=== PATIENT | female | born 1950 | race Two or more races ===

== ENCOUNTER 2024-08-23 09:38 | Outpatient (AMB) | payer MEDICARE, MEDICAID, SELFPAY ==
--- NOTE | 2024-08-23 09:48 | PD.ORTHCLVIS ---
Vital signs 08/23/24 09:49 Height 1.55 m Height Method Stated Weight 86.268 kg Weight Measurement Method Standing Scale BMI 35.9 BP 160/80 H Blood Pressure Source Automatic Cuff Blood Pressure Location Right Upper Arm Position Sitting Respiration 18 Pulse 81 Pulse Source Monitor Temp 98.1 F Temp Source Temporal Artery Scan Pulse Oximetry (%) 97 Oxygen Delivery Method Room Air Med/Allergies Allergies & Medications Allergies No Known Allergies Allergy (Verified 08/23/24 09:49) Medication Reconciliation lisinopril 40 mg tablet 40 ml PO BID #0 tabs 05/30/14 [History Confirmed 08/23/24] amlodipine 5 mg tablet 5 mg PO QDAY 04/05/24 [History Confirmed 08/23/24] atorvastatin 40 mg tablet 40 mg PO QDAY 04/05/24 [History Confirmed 08/23/24] omeprazole 20 mg capsule,delayed release 20 mg PO QDAY 05/20/24 [History Confirmed 08/23/24] acetaminophen 500 mg tablet (Acetaminophen Extra Strength) 1,000 mg (2 x 500 mg) PO Q6H PRN pain #90 tabs 05/23/24 [Rx Confirmed 08/23/24] aspirin 81 mg tablet,delayed release 81 mg PO BID #60 tabs 05/23/24 [Rx Confirmed 08/23/24] doxycycline hyclate 100 mg tablet 100 mg PO BID #14 tabs 05/23/24 [Rx Confirmed 08/23/24] gabapentin 300 mg capsule 300 mg PO .qhs #30 caps 05/23/24 [Rx Confirmed 08/23/24] oxycodone 5 mg tablet 5 mg PO Q6H PRN pain #28 tabs 05/23/24 [Rx Confirmed 08/23/24] sennosides 8.6 mg-docusate sodium 50 mg tablet (Senna-S) 1 tab-cap PO QDAY #30 tabs 05/23/24 [Rx Confirmed 08/23/24] oxycodone 5 mg tablet 5 mg PO Q6H PRN pain #28 tabs 07/12/24 [Rx Confirmed 08/23/24] Subjective Visit Visit for: follow up visit and knee Immunization / Flu Flu Vaccine in the Last 12 Months: No Flu Vaccine Exclusion Criteria: No Exclusion Criteria History of Present Illness Chief complaint: F/U ON KNEE. PAIN IS WORSENING ON THE POSTERIOR OF THE KNEE Date of 1st surgery (if applicable): 05/23/2024 Naya is 3-month status post right total knee replacement. She is doing well. She has minimal pain Personal History Occupation: RETIRED Red flag PMH: none Pain Pain level (0-10): 10 Pain duration: ALL DAY Pain location: posterior Pain quality: sharp and other (specify) (STABBING, PULSATING, SWELLING ) Pain timing: increases with activity Ambulatory data Ambulatory device: cane Treatments Improvement with previous injections: No Improvement with PT: No Improvement with NSAIDS: no Review of Systems Review of Systems: All systems negative unless otherwise noted in HPI. Exam Exam Patient is in no acute distress and is cooperative with the examination today. Patient has a normal mood and affect. Breathing is nonlabored. In no respiratory distress. Bilateral extremities were evaluated and demonstrates sensation intact to light touch. Palpable pedal pulses are present. No significant edema is present. Right knee incision is clean dry and intact Range of motion is 0-95 degrees Assessment and Plan Problem List (1) History of total right knee replacement: Status: Acute Plan: Patient is doing well status post right total knee replacThe patient is doing well reports the pain is continuing to improve. Will see him in approximately a couple months to check on her. She continue to work with physical therapy. Advanced Care Planning Discussion Advance care planning discussed with:: patient Office Procedures GNS Level of Care Nursing/Assessment Patient Status: Established Patient Nursing Assessment/Reassesment: Medication Reconciliation, Update PMH in EMR and Vital Signs Coordination of Care: Complex Care and Chronic Disease 1-5, Education Complex Pt/Fam, Consent,records obtained, informed consent, Results/Orders obtained and Staff clarify orders Special Needs: Language special needs Established Patient Charge Established Patient Point Assignment: 95 Established Patient Point Charge: EP Level 3 (80-115) Past Medical History Past Medical History Have you ever been diagnosed with any of the following: Neurological Problems Seizures: No Cardiology Problems Hypercholesterolemia: Yes Congestive Heart Failure: No Hypertension: Yes Varicose Veins: Yes Respiratory Problems Chronic Obstructive Pulmonary Disease (COPD): No Smoking: No Smoking Exposure: No Stomache/Intestinal Problems Hemorrhoids: Yes Obesity: Yes Genital/Urinary Problems Renal Disease: No Reproductive Problems Previous Pregnancies: Yes Musculoskeletal Problems Arthritis: Yes Head,Eye,Nose,Throat Problems Cataracts: Yes (Bilateral eyes) Endocrine Problems Diabetes Mellitus Type 1: No Diabetes Mellitus Type 2: No Other Problems Hospitalization: Yes (GIB) Shingles: Yes Falls: Yes Blood Transfusions: No Blood Transfusion Reaction: No Anesthesia Reactions: No Cancer: No Surgical History Total Knee Replacement: Yes Hysterectomy: Yes
[2024-08-23 09:49] VITALS: BP 160/80; PULSE 81; RESP 18; TEMP 36.7; O2SAT 97; BMI 35.9
== END 2024-08-23 10:14 | disposition home or self-care (01) ==
PROVIDERS: Supervising Provider Orthopaedic Surgery Adult Reconstructive Orthopaedic Surgery; Visit Provider Orthopaedic Surgery Adult Reconstructive Orthopaedic Surgery
DX: Z96.651 Presence of right artificial knee joint (principal); I10 Essential (primary) hypertension; E78.00 Pure hypercholesterolemia, unspecified
CPT/HCPCS: 99213; G0463

== ENCOUNTER 2024-08-30 15:19 | Emergency (ER) | payer MEDICARE, MEDICAID, SELFPAY ==
[2024-08-30 15:20] VITALS: BMI 35.9
[2024-08-30 15:42] VITALS: BP 169/73; PULSE 77; RESP 17; TEMP 36.7; O2SAT 95; BMI 36.1
--- NOTE | 2024-08-30 15:45 | XR_ITS ---
Examination: Duplex scan of the lower extremity, unilateral right Date and time of exam: August 30, 2024 1731 hours INDICATIONS: Right lower leg pain beginning 2 days ago Technique: Duplex scan of the extremity veins using B-mode/grayscale imaging and Doppler spectral analysis and color flow Attention is directed to internal echogenicity, compression and augmentation involving these veins, color flow assessment, spectral analysis Findings: Major deep venous structures in the extremity demonstrate normal course and caliber. There is no evidence of deep vein thrombosis. Normal color flow and spectral analysis Impression: Negative for DVT..
--- NOTE | 2024-08-30 17:50 | PD.EDLOWEX ---
Lower Extremity Injury RME/HPI General Chief Complaint: Extremity Injury, Lower Stated Complaint: SENT BY PMD R/O DVT, LEG PAIN Time Seen by Provider: 08/30/24 17:50 Arrival date/time: 08/30/24 15:19 73-year-old female presents to the emergency department today stating that she has right leg pain pain behind the right knee patient reports that she had knee replacement in May. Limitations: no limitations Related Data Home Medications ?Medication ?Instructions ?Recorded ?Confirmed lisinopril 40 mg tablet 40 ml PO BID #0 tabs 05/30/14 08/23/24 amlodipine 5 mg tablet 5 mg PO QDAY 04/05/24 08/23/24 atorvastatin 40 mg tablet 40 mg PO QDAY 04/05/24 08/23/24 omeprazole 20 mg capsule,delayed 20 mg PO QDAY 05/20/24 08/23/24 release Previous Rx's ?Medication ?Instructions ?Recorded acetaminophen 500 mg tablet 1,000 mg (2 x 500 mg) PO Q6H PRN 05/23/24 (Acetaminophen Extra Strength) pain #90 tabs aspirin 81 mg tablet,delayed 81 mg PO BID #60 tabs 05/23/24 release doxycycline hyclate 100 mg tablet 100 mg PO BID #14 tabs 05/23/24 gabapentin 300 mg capsule 300 mg PO .qhs #30 caps 05/23/24 oxycodone 5 mg tablet 5 mg PO Q6H PRN pain #28 tabs 05/23/24 sennosides 8.6 mg-docusate sodium 1 tab-cap PO QDAY #30 tabs 05/23/24 50 mg tablet (Senna-S) oxycodone 5 mg tablet 5 mg PO Q6H PRN pain #28 tabs 07/12/24 Allergies Allergy/AdvReac Type Severity Reaction Status Date / Time No Known Allergies Allergy Verified 08/30/24 15:22 Review of Systems Review of Systems Systems Reviewed: All systems reviewed, normal except as documented Constitutional Constitutional: Reports system reviewed and no additional complaints, except as documented, Denies fever(s) and Denies headache(s) Eyes Eyes: Reports system reviewed and no additional complaints, except as documented and Denies blurry vision ENT Ears, Nose, Mouth, and Throat: Reports system reviewed and no additional complaints, except as documented, Denies headache(s), Denies nasal congestion and Denies nasal discharge Cardiovascular Cardiovascular: Reports system reviewed and no additional complaints, except as documented, Denies chest pain and Denies dyspnea Respiratory Respiratory: Reports system reviewed and no additional complaints, except as documented, Denies chest congestion, Denies cough and Denies dyspnea Gastrointestinal Gastrointestinal: Reports system reviewed and no additional complaints, except as documented and Denies abdominal pain Musculoskeletal Musculoskeletal: Reports system reviewed and no additional complaints, except as documented, Denies deformity, Denies numbness, Reports stiffness, Denies tingling and Reports other (Right leg pain) Integumentary/Breasts Skin/Breast: Reports system reviewed and no additional complaints, except as documented and Denies rash Neurologic Neurologic: Reports system reviewed and no additional complaints, except as documented, Reports as per HPI, Denies headache(s), Denies numbness and Denies tingling Past Medical History Past Medical History NEUROLOGIC: Negative Neurological Disorders or Seizures CARDIAC: Positive Cardiac Disorders, Hypercholesterolemia, Hypertension and Varicose Veins; Negative Congestive Heart Failure RESPIRATORY: Negative Chronic Obstructive Pulmonary Disease (COPD), Smoking or Smoking Exposure GASTROINTESTINAL: Positive Gastrointestinal Disorders, Hemorrhoids and Obesity GENITOURINARY: Negative Genitourinary Disorders or Renal Disease REPRODUCTIVE: Positive Previous Pregnancies MUSCULOSKELETAL: Positive Musculoskeletal Disorders and Arthritis ENT: Positive Cataracts (Bilateral eyes) ENDOCRINE: Negative Endocrine Disorders, Diabetes Mellitus Type 1 or Diabetes Mellitus Type 2 HEMATOLOGIC: Negative Blood Disorders OTHER HISTORY: Positive Hospitalization (GIB), Shingles and Falls; Negative Autoimmune Disease, Blood Transfusions, Blood Transfusion Reaction, Anesthesia Reactions or Cancer Family History FAMILY HISTORY: Positive Family Cardiac Disorders, Family Cancer and Family Surgery; Negative Family Psychiatric Problems, Family Respiratory Disorders, Family Gastrointestinal Problems or Family Anesthesia Reaction Surgical History SURGICAL: Positive 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.), Abdominal Surgery and Hysterectomy Social History SMOKING STATUS: Never smoker ED Exam General Limitations: Present no limitations General appearance: Present alert and in no apparent distress Head Head exam: Present atraumatic Eye Eye exam: Present normal appearance, PERRL and EOMI ENT ENT exam: Present normal exam, normal oropharynx and mucous membranes moist Neck Neck exam: Present normal inspection, full ROM and trachea midline Chest Chest inspection: Present normal inspection and symmetric chest wall rise Respiratory Respiratory exam: Present normal lung sounds bilaterally Cardiovascular Cardiovascular exam: Present regular rate, normal rhythm and normal heart sounds Abdominal Exam Abdominal exam: Present soft and normal bowel sounds Extremities Exam Extremities exam: Present full ROM, tenderness, normal capillary refill, pedal edema and calf tenderness; Absent joint swelling Back Exam Back exam: Present normal inspection and full ROM Neurological Exam Neurological exam: Present alert, oriented X3 and CN II-XII intact Psychiatric Psychiatric exam: Present normal affect and normal mood Skin Skin exam: Present warm, dry, intact and normal color Course Quality Measures none Orders Category Date Time Status US venous doppler LE RT Stat Exams 08/30/24 15:45 Completed Vital Signs Vital signs: Vital Signs Temperature 98.1 F 08/30/24 15:42 Pulse Rate 77 08/30/24 15:42 Respiratory Rate 17 08/30/24 15:42 Blood Pressure 169/73 H 08/30/24 15:42 Pulse Oximetry (%) 95 08/30/24 15:42 Oxygen Delivery Method Room Air 08/30/24 15:42 O2 saturation 95% room air within normal Extremity Injury, Lower MDM Narrative MDM Narrative:: 73-year-old female presents to the emergency department today stating that she has right leg pain pain behind the right knee patient reports that she had knee replacement in May. On exam patient is mild bilateral edema of lower extremities On exam no redness or warmth of the right lower extremity which is the extremity in question Ultrasound right lower extremity obtained no acute DVT noted Patient discharged home in no distress to follow-up with primary care doctor in the next 24 to 48 hours and for any worsening symptoms to return to the ER immediately Patient data External records reviewed:: [facility] previous records Clinical information provided by:: patient Social determinants that could affect healthcare access:: none Patient has the following chronic illnesses:: See history How is presenting disease/condition affected by chronic disease/condition?: uneffected by Evaluation data The following diagnostics were reviewed and interpreted by me:: radiology exam(s) Lab and/or radiology exams considered but not ordered:: Radiology obtain Interpretation Summary: Reviewed by me Medications / Prescriptions Medications or Prescriptions considered but not ordered:: Given no meds Medication administrations:: No meds Consultations Consultation(s) initiated? (list below): No Diagnosis Extremity Injury, Lower Differential Diagnosis: acute internal derangement of knee and other (Orantes's cyst, leg pain) Most likely diagnosis given after review of the tests above:: Leg pain right Admission Indicated Admission indicated?: not indicated Admission Request Was there a request for admission?: No Disposition Plan Disposition Plan: Discharge Discharge Attestation Discharge Attestation: The patient and all family members were given an opportunity to ask questions and understood the discharge instructions. Discharge instructions specifically effects, indications for sooner follow up or return to the emergency department, and the expected course of current diagnosis. Patient condition: Stable Discharge Plan Plan Patient Disposition: HOME (Self Care) Disposition Comment: Stable Prescriptions/Referrals Prescriptions/Med Rec: No Action atorvastatin 40 mg tablet 40 mg PO QDAY amlodipine 5 mg tablet 5 mg PO QDAY oxycodone 5 mg tablet 5 mg PO Q6H MDD 40 PRN (Reason: pain) Qty: 28 0RF lisinopril 40 MG tablet 40 ml PO BID Qty: 0 omeprazole 20 mg Capsule,Delayed Release(Dr/Ec) 20 mg PO QDAY acetaminophen [Acetaminophen Extra Strength] 500 mg tablet 1,000 mg PO Q6H MDD 1000mg PRN (Reason: pain) Qty: 90 0RF aspirin 81 mg tablet,delayed release (DR/EC) 81 mg PO BID Qty: 60 0RF sennosides-docusate sodium [Senna-S] 8.6-50 mg tablet 1 tab-cap PO QDAY Qty: 30 0RF gabapentin 300 mg capsule 300 mg PO .qhs Qty: 30 0RF doxycycline hyclate 100 mg tablet 100 mg PO BID Qty: 14 0RF oxycodone 5 mg tablet 5 mg PO Q6H MDD 40 PRN (Reason: pain) Qty: 28 0RF Referrals: No Primary/Family,Physician [Primary Care Provider] - In 1 week Problem List Clinical Impression: Leg pain, right Patient/Caregiver Discharge Instructions Education Materials: ED RICE Additional Instructions: Please follow up with your primary care doctor in the next 24-48hrs for any worsening symptoms return here immediately Print Language: Filipino Stand Alone Forms: [employer] Award Info., Patient Portal Info Letter PA/ICT TRAINER Supervising Physician PA/BRITTANY Supervising Physician: Dr casey
== END 2024-08-30 18:07 | disposition home or self-care (01) ==
PROVIDERS: Emergency Provider Emergency Medicine
DX: M79.604 Pain in right leg (principal); Z96.651 Presence of right artificial knee joint
CPT/HCPCS: 93971; 99284

== ENCOUNTER 2024-09-06 13:10 | Outpatient (AMB) | payer MEDICARE, MEDICAID, SELFPAY ==
[2024-09-06 13:30] VITALS: BP 142/76; PULSE 90; RESP 18; TEMP 36.6; O2SAT 96; BMI 36.1
--- NOTE | 2024-09-06 13:30 | PD.ORTHCLVIS ---
Vital signs 09/06/24 13:30 09/06/24 13:34 Height 1.55 m 1.55 m Height Method Stated Stated Weight 86.835 kg 86.835 kg Weight Measurement Method Standing Scale Standing Scale BMI 36.1 36.1 BP 142/76 H 142/76 H Blood Pressure Source Automatic Cuff Automatic Cuff Blood Pressure Location Right Upper Arm Right Upper Arm Position Sitting Sitting Respiration 18 18 Pulse 90 98 Pulse Source Monitor Monitor Temp 97.8 F 97.3 F Temp Source Temporal Artery Scan Temporal Artery Scan Pulse Oximetry (%) 96 96 Oxygen Delivery Method Room Air Room Air Med/Allergies Allergies & Medications Allergies No Known Allergies Allergy (Verified 09/06/24 13:35) Medication Reconciliation lisinopril 40 mg tablet 40 ml PO BID #0 tabs 05/30/14 [History Confirmed 09/06/24] amlodipine 5 mg tablet 5 mg PO QDAY 04/05/24 [History Confirmed 09/06/24] atorvastatin 40 mg tablet 40 mg PO QDAY 04/05/24 [History Confirmed 09/06/24] omeprazole 20 mg capsule,delayed release 20 mg PO QDAY 05/20/24 [History Confirmed 09/06/24] aspirin 81 mg tablet,delayed release 81 mg PO BID #60 tabs 05/23/24 [Rx Confirmed 09/06/24] doxycycline hyclate 100 mg tablet 100 mg PO BID #14 tabs 05/23/24 [Rx Confirmed 09/06/24] gabapentin 300 mg capsule 300 mg PO .qhs #30 caps 05/23/24 [Rx Confirmed 09/06/24] sennosides 8.6 mg-docusate sodium 50 mg tablet (Senna-S) 1 tab-cap PO QDAY #30 tabs 05/23/24 [Rx Confirmed 09/06/24] oxycodone 5 mg tablet 5 mg PO Q6H PRN pain #28 tabs 07/12/24 [Rx Confirmed 09/06/24] Subjective Visit Visit for: follow up visit and knee Immunization / Flu Flu Vaccine in the Last 12 Months: Yes Flu Vaccine Exclusion Criteria: Already Received History of Present Illness Chief complaint: KNEE PAIN F/U Date of 1st surgery (if applicable): 05/23/2024 Naya is 4-month status post right total knee replacement. She is doing well. She has minimal pain Personal History Occupation: RETIRED Red flag PMH: none Pain Pain level (0-10): 8 Pain duration: ALL DAY Pain location: posterior Pain quality: sharp, dull and aching Pain timing: night, increases with activity and stairs Ambulatory data Ambulatory device: none Treatments Improvement with previous injections: No Improvement with PT: No Improvement with NSAIDS: n/a Review of Systems Review of Systems: All systems negative unless otherwise noted in HPI. Exam Exam Patient is in no acute distress and is cooperative with the examination today. Patient has a normal mood and affect. Breathing is nonlabored. In no respiratory distress. Bilateral extremities were evaluated and demonstrates sensation intact to light touch. Palpable pedal pulses are present. No significant edema is present. Right knee incision is clean dry and intact Range of motion is 0-95 degrees Right total knee replacement in good alignment and position Assessment and Plan Problem List (1) History of total right knee replacement: Status: Acute Plan: Patient is doing well status post right total knee replacment. The patient is doing well reports the pain is continuing to improve. She is doing well. She is still doing physical therapy. Advanced Care Planning Discussion Advance care planning discussed with:: patient and child Office Procedures GNS Level of Care Nursing/Assessment Patient Status: Established Patient Nursing Assessment/Reassesment: Medication Reconciliation, Update PMH in EMR and Vital Signs Coordination of Care: Complex Care and Chronic Disease 1-5, Education Complex Pt/Fam, Consent,records obtained, informed consent, Results/Orders obtained and Staff clarify orders Special Needs: Language special needs Established Patient Charge Established Patient Point Assignment: 95 Established Patient Point Charge: EP Level 3 (80-115) Past Medical History Past Medical History Have you ever been diagnosed with any of the following: Neurological Problems Seizures: No Cardiology Problems Hypercholesterolemia: Yes Congestive Heart Failure: No Hypertension: Yes Varicose Veins: Yes Respiratory Problems Chronic Obstructive Pulmonary Disease (COPD): No Smoking: No Smoking Exposure: No Stomache/Intestinal Problems Hemorrhoids: Yes Obesity: Yes Genital/Urinary Problems Renal Disease: No Reproductive Problems Previous Pregnancies: Yes Musculoskeletal Problems Arthritis: Yes Head,Eye,Nose,Throat Problems Cataracts: Yes (Bilateral eyes) Endocrine Problems Diabetes Mellitus Type 1: No Diabetes Mellitus Type 2: No Other Problems Hospitalization: Yes (GIB) Shingles: Yes Falls: Yes Blood Transfusions: No Blood Transfusion Reaction: No Anesthesia Reactions: No Cancer: No Surgical History Total Knee Replacement: Yes Hysterectomy: Yes
[2024-09-06 13:34] VITALS: BP 142/76; PULSE 98; RESP 18; TEMP 36.3; O2SAT 96; BMI 36.1
== END 2024-09-06 13:56 | disposition home or self-care (01) ==
LOC: HODSRG 13:10
PROVIDERS: Supervising Provider Orthopaedic Surgery Adult Reconstructive Orthopaedic Surgery; Visit Provider Orthopaedic Surgery Adult Reconstructive Orthopaedic Surgery
DX: Z96.651 Presence of right artificial knee joint (principal); I10 Essential (primary) hypertension; E78.00 Pure hypercholesterolemia, unspecified
CPT/HCPCS: 99213; G0463

== ENCOUNTER 2024-10-25 09:05 | Outpatient (AMB) | payer MEDICARE, MEDICAID, SELFPAY ==
[2024-10-25 09:29] VITALS: BP 150/75; PULSE 82; RESP 18; TEMP 36.3; O2SAT 97; BMI 35.9
--- NOTE | 2024-10-25 09:29 | ORTHONT_ITS ---
Vital signs 10/25/24 09:29 Height 1.55 m Height Method Stated Weight 86.381 kg Weight Measurement Method Standing Scale BMI 35.9 BP 150/75 H Blood Pressure Source Automatic Cuff Blood Pressure Location Left Upper Arm Position Sitting Respiration 18 Pulse 82 Pulse Source Monitor Temp 97.3 F Temp Source Temporal Artery Scan Pulse Oximetry (%) 97 Oxygen Delivery Method Room Air Med/Allergies Allergies & Medications Allergies No Known Allergies Allergy (Verified 10/25/24 09:30) Medication Reconciliation lisinopril 40 mg tablet 40 ml PO BID #0 tabs 05/30/14 [History Confirmed 10/25/24] amlodipine 5 mg tablet 5 mg PO QDAY 04/05/24 [History Confirmed 10/25/24] atorvastatin 40 mg tablet 40 mg PO QDAY 04/05/24 [History Confirmed 10/25/24] omeprazole 20 mg capsule,delayed release 20 mg PO QDAY 05/20/24 [History Confirmed 10/25/24] aspirin 81 mg tablet,delayed release 81 mg PO BID #60 tabs 05/23/24 [Rx Confirmed 10/25/24] doxycycline hyclate 100 mg tablet 100 mg PO BID #14 tabs 05/23/24 [Rx Confirmed 10/25/24] gabapentin 300 mg capsule 300 mg PO .qhs #30 caps 05/23/24 [Rx Confirmed 10/25/24] sennosides 8.6 mg-docusate sodium 50 mg tablet (Senna-S) 1 tab-cap PO QDAY #30 tabs 05/23/24 [Rx Confirmed 10/25/24] oxycodone 5 mg tablet 5 mg PO Q6H PRN pain #28 tabs 07/12/24 [Rx Confirmed 10/25/24] cyclobenzaprine 5 mg tablet 5 mg PO TID PRN muscle spasm #45 tabs 09/06/24 [Rx Confirmed 10/25/24] Exam Exam Patient is in no acute distress and is cooperative with the examination today. Patient has a normal mood and affect. Breathing is nonlabored. In no respiratory distress. Bilateral extremities were evaluated and demonstrates sensation intact to light touch. Palpable pedal pulses are present. No significant edema is present. Right knee incision is clean dry and intact Range of motion is 0-95 degrees Right total knee replacement in good alignment and position Assessment and Plan Problem List (1) History of total right knee replacement: Status: Acute Plan: Patient is doing well status post right total knee replacement. The patient is doing well reports the pain is continuing to improve. She is doing well. She has minimal pain Advanced Care Planning Discussion Advance care planning discussed with:: patient Office Procedures GNS Level of Care Nursing/Assessment Patient Status: Established Patient Nursing Assessment/Reassesment: Medication Reconciliation, Update PMH in EMR and Vital Signs Coordination of Care: Complex Care and Chronic Disease 1-5, Education Complex Pt/Fam, Consent,records obtained, informed consent, Results/Orders obtained and Staff clarify orders Special Needs: Language special needs Established Patient Charge Established Patient Point Assignment: 95 Established Patient Point Charge: EP Level 3 (80-115) MA Intake Visit Data Collection New Patient or Established: Established Patient (seen at [facility] within 3 years) Reason for Visit:: FOLLOW UP Seen by Clinical Staff ONLY (RN/MA): No It Program Engagement Director Required: Yes PCP or OBGYN visit in last 3 months: Yes Hx Now: No Do You Feel Safe at Home: Yes Authorities Contacted: N/A Questionairres Past Medical History Past Medical History Have you ever been diagnosed with any of the following: Neurological Problems Seizures: No Cardiology Problems Hypercholesterolemia: Yes Congestive Heart Failure: No Hypertension: Yes Varicose Veins: Yes Respiratory Problems Chronic Obstructive Pulmonary Disease (COPD): No Smoking: No Smoking Exposure: No Stomache/Intestinal Problems Hemorrhoids: Yes Obesity: Yes Genital/Urinary Problems Renal Disease: No Reproductive Problems Previous Pregnancies: Yes Musculoskeletal Problems Arthritis: Yes Head,Eye,Nose,Throat Problems Cataracts: Yes (Bilateral eyes) Endocrine Problems Diabetes Mellitus Type 1: No Diabetes Mellitus Type 2: No Other Problems Hospitalization: Yes (GIB) Shingles: Yes Falls: Yes Blood Transfusions: No Blood Transfusion Reaction: No Anesthesia Reactions: No Cancer: No Surgical History Total Knee Replacement: Yes Hysterectomy: Yes Subjective Visit Visit for: follow up visit Immunization / Flu Flu Vaccine in the Last 12 Months: No Flu Vaccine Exclusion Criteria: No Exclusion Criteria History of Present Illness Chief complaint: right knee pain Is a 74-year-old female who is 5 months status post right total knee replacement. She is doing well. She has minimal pain. Pain Pain level (0-10): 3 Pain duration: WHEN STANDING/BENDING Pain location: inside (medial) Pain quality: aching Pain timing: increases with activity Associated signs & symptoms: none Ambulatory data Ambulatory device: none Treatments Improvement with previous injections: No Improvement with PT: No Improvement with NSAIDS: no Review of Systems Review of Systems: All systems negative unless otherwise noted in HPI.
== END 2024-10-25 09:36 | disposition home or self-care (01) ==
LOC: HODSRG 09:05
PROVIDERS: Supervising Provider Orthopaedic Surgery Adult Reconstructive Orthopaedic Surgery; Visit Provider Orthopaedic Surgery Adult Reconstructive Orthopaedic Surgery
DX: Z96.651 Presence of right artificial knee joint (principal); E78.00 Pure hypercholesterolemia, unspecified; I10 Essential (primary) hypertension
CPT/HCPCS: 99213; G0463

== ENCOUNTER 2025-02-16 13:01 | Emergency (ER) | payer MEDICARE, MEDICAID, SELFPAY ==
[2025-02-16 13:02] VITALS: BMI 35.9
[2025-02-16 13:11] VITALS: BP 116/73; PULSE 85; RESP 18; TEMP 36.6; O2SAT 98
--- NOTE | 2025-02-16 13:20 | PD.EDRME ---
Rapid Medical Screening Exam RME Arrival date/time: 02/16/25 13:01 74-year-old female with a history of hyperlipidemia, hypertension presents to the emergency room with a chief complaint of tenderness and pain to her right lower extremity. Patient had an ultrasound this morning and states she was sent over by her primary care provider for DVT I have greeted and performed a focused initial assessment of this patient. A comprehensive ED assessment and evaluation of the patient, analysis of all test results, and completion of the medical decision making process will be conducted by additional ED providers. Chief Complaint: Extremity Injury, Lower Time Seen by Provider: 02/16/25 13:18 Vital signs: Vital Signs Temperature 98 F 02/16/25 13:11 Pulse Rate 85 02/16/25 13:11 Respiratory Rate 18 02/16/25 13:11 Blood Pressure 116/73 02/16/25 13:11 Pulse Oximetry (%) 98 02/16/25 13:11 Oxygen Delivery Method Room Air 02/16/25 13:11 Vital signs reviewed by provider: Yes
[2025-02-16 14:11] LABS: Basophils % (Auto) 1 % (0-2.5); Eosinophils # (Auto) 0.1 Thou/mm3 (0.0-0.5); Eosinophils % (Auto) 1 % (0-10); Hematocrit 37.2 % (36.0-46.0); Hemoglobin 12.3 g/dL (12.0-16.0); Immature Granulocytes % (Auto) 0 % (0-0); Immature Granulocytes Auto 0.01 Thou/mm3 (0.00-0.00); Lymphocytes # (Auto) 1.2 Thou/mm3 (1.0-4.8); Lymphocytes % (Auto) 19 % (10-50); Mean Corpuscular HGB Conc 33.1 g/dl (31.0-37.0); Mean Corpuscular Hemoglobin 28.4 pg (25.0-35.0); Mean Corpuscular Volume 86 fL (80-100); Monocytes # (Auto) 0.7 Thou/mm3 (0.0-0.8); Monocytes % (Auto) 11 % (0-12); Neutrophils # (Auto) 4.3 Thou/mm3 (1.8-7.7); Neutrophils % (Auto) 69 % (37-80); Nucleated Red Blood Cell % 0 /100 WBC (0); Platelet Count 237 Thou/mm3 (140-440); RDW Standard Deviation 47.4 fL (36.4-46.3); Red Blood Count 4.33 Miln/mm3 (4.00-5.20); White Blood Count 6.3 Thou/mm3 (3.6-11.0)
[2025-02-16 14:29] LABS: INR 0.9 (0.9-1.3); Partial Thromboplastin Time 25.9 Seconds (22.0-36.0); Prothrombin Time 10.4 Seconds (9.0-12.2)
[2025-02-16 14:34] LABS: Alanine Aminotransferase 9 U/L (10-49); Albumin, Serum 4.2 gm/dL (3.4-4.8); Albumin/Globulin Ratio 1.4 (1.2-2.2); Alkaline Phosphatase 112 U/L (46-116); Anion Gap 9 (7-16); Aspartate Amino Transferase 14 U/L (0-34); BUN/Creatinine Ratio 24 Ratio (12-20); Bilirubin,Total 0.5 mg/dL (0.3-1.2); Blood Urea Nitrogen 22 mg/dL (9-23); Calcium 8.5 mg/dL (8.3-10.6); Calcium (Corrected) 8.5 mg/dL (8.5-10.1); Carbon Dioxide 29.3 mMol/L (20.0-31.0); Chloride 106 mMol/L (98-107); Creatinine (Component) 0.9 mg/dL (0.6-1.3); Estimated Creatinine Clearance 53.8 mL/min (>60); Globulin 2.9 gm/dL (2.3-3.5); Glucose 108 mg/dL (74-106); Osmolality,Calculated 291 (275-295); Potassium 4.6 mMol/L (3.4-5.1); Sodium 144 mMol/L (136-145); Total Protein 7.1 gm/dL (5.7-8.2); eGFR > 60 See Note
--- NOTE | 2025-02-16 14:43 | PD.EDLOWEX ---
Lower Extremity Injury RME/HPI General Chief Complaint: Extremity Injury, Lower Stated Complaint: +DVT- SEND BY PCP Time Seen by Provider: 02/16/25 13:18 Arrival date/time: 02/16/25 13:01 RME / HPI RME / HPI Narrative: 74-year-old female with a history of hyperlipidemia, hypertension presents to the emergency room with a chief complaint of tenderness and pain to her right lower extremity. This been ongoing for the last 6 months, comes and goes, getting worse for the last few days. Patient had an ultrasound this morning and states she was sent over by her primary care provider for DVT. Denies any chest pain denies any palpitation denies any headache denies any shortness of breath. Patient is not taking any blood thinner. Check for aspirin 81 mg daily Related Data Home Medications ?Medication ?Instructions ?Recorded ?Confirmed lisinopril 40 mg tablet 40 ml PO BID #0 tabs 05/30/14 10/25/24 amlodipine 5 mg tablet 5 mg PO QDAY 04/05/24 10/25/24 atorvastatin 40 mg tablet 40 mg PO QDAY 04/05/24 10/25/24 omeprazole 20 mg capsule,delayed 20 mg PO QDAY 05/20/24 10/25/24 release Previous Rx's ?Medication ?Instructions ?Recorded aspirin 81 mg tablet,delayed 81 mg PO BID #60 tabs 05/23/24 release doxycycline hyclate 100 mg tablet 100 mg PO BID #14 tabs 05/23/24 gabapentin 300 mg capsule 300 mg PO .qhs #30 caps 05/23/24 sennosides 8.6 mg-docusate sodium 1 tab-cap PO QDAY #30 tabs 05/23/24 50 mg tablet (Senna-S) oxycodone 5 mg tablet 5 mg PO Q6H PRN pain #28 tabs 07/12/24 cyclobenzaprine 5 mg tablet 5 mg PO TID PRN muscle spasm #45 09/06/24 tabs apixaban 5 mg tablet (Eliquis) 5 mg PO BID #60 tabs 02/16/25 apixaban 5 mg tablet (Eliquis) 10 mg (2 x 5 mg) PO BID #28 tabs 02/16/25 Allergies Allergy/AdvReac Type Severity Reaction Status Date / Time No Known Allergies Allergy Verified 02/16/25 13:05 Review of Systems Review of Systems Narrative Review of Systems: Review of system reviewed and within normal limits except mentioned in HPI ED Exam Narrative Physical exam: VITAL SIGNS: Reviewed. GENERAL APPEARANCE: Alert and interactive, follows commands, no acute distress, HEAD AND FACE: Non-traumatic. ENT: PERRL, pink conjunctivitis, eyelid no trauma, Mucous membrane moist. NECK: Supple, nontender, no nuchal rigidity. CHEST: No tenderness, no crepitus, no paradoxical movement, no retractions. LUNGS: Clear, well ventilated, symmetric, no rales, no wheezing, no ronchi, no stridor, good breath sounds bilaterally. HEART: Regular rate, regular rhythm, no murmur, no gallops. ABDOMEN: Soft, positive bowel sounds, nondistended, no guarding, nontender, no rebound, no masses, RECTAL: Deferred. GENITAL: Deferred. NEUROLOGICAL: Gross motor function intact sensory function intact, Appropriate for age. MUSCULOSKELETAL: low back nontender, full range of motion. EXTREMITIES: Right lower leg mild swelling, no tenderness no redness full range of motion. Distal neurovascular status intact bilateral lower extremity SKIN: Color pink, dry, no rash, no lacerations, no abrasions, no contusions. LYMPHATICS: Deferred. Course Quality Measures none Orders Category Date Time Status CBC Stat Lab 02/16/25 13:51 Completed CMP [Comprehensive Metabolic Panel] Stat Lab 02/16/25 13:51 Completed PT [Prothrombin Time with INR] Stat Lab 02/16/25 13:51 Completed PTT [Partial Thromboplastin Time] Stat Lab 02/16/25 13:51 Completed Vital Signs Vital signs: Vital Signs Temperature 98 F 02/16/25 13:11 Pulse Rate 85 02/16/25 13:11 Respiratory Rate 18 02/16/25 13:11 Blood Pressure 116/73 02/16/25 13:11 Pulse Oximetry (%) 98 02/16/25 13:11 Oxygen Delivery Method Room Air 02/16/25 13:11 Extremity Injury, Lower MDM Narrative MDM Narrative:: 74-year-old female with a history of hyperlipidemia, hypertension presents to the emergency room with a chief complaint of tenderness and pain to her right lower extremity. This been ongoing for the last 6 months, comes and goes, getting worse for the last few days. Patient had an ultrasound this morning and states she was sent over by her primary care provider for DVT. Denies any chest pain denies any palpitation denies any headache denies any shortness of breath. Patient is not taking any blood thinner. Check for aspirin 81 mg daily Patient's laboratory workup today all came back unremarkable. I reviewed patient's ultrasound of the lower extremity and showed Positive for occlusive acute deep vein thrombus involving mid and distal right superficial femoral vein Patient will be sent home on [employer] Patient data External records reviewed:: None Clinical information provided by:: patient Social determinants that could affect healthcare access:: none Patient has the following chronic illnesses:: Hypertension How is presenting disease/condition affected by chronic disease/condition?: exacerbated by Evaluation data The following diagnostics were reviewed and interpreted by me:: lab results and radiology exam(s) Lab and/or radiology exams considered but not ordered:: None Interpretation Summary: See results in MDM Medications / Prescriptions Medications or Prescriptions considered but not ordered:: None Medication administrations:: None Consultations Consultation(s) initiated? (list below): No Diagnosis Extremity Injury, Lower Differential Diagnosis: other (Leg pain leg swelling DVT) Most likely diagnosis given after review of the tests above:: DVT right lower extremity Admission Indicated Admission indicated?: not indicated Explain why admission is indicated or not indicated:: Stable Admission Request Was there a request for admission?: No Disposition Plan Disposition Plan: Discharge Discharge Attestation Discharge Attestation: The patient and all family members were given an opportunity to ask questions and understood the discharge instructions. Discharge instructions specifically effects, indications for sooner follow up or return to the emergency department, and the expected course of current diagnosis. Patient condition: Stable Discharge Plan Plan Patient Disposition: HOME (Self Care) Discharge Disposition comment: Stable Prescriptions/Referrals Prescriptions/Med Rec: New Eliquis 5 mg tablet 10 mg PO BID Qty: 28 0RF Eliquis 5 mg tablet 5 mg PO BID Qty: 60 0RF Rx Instructions: Start Eliquis 5 mg twice daily after 1 week No Action atorvastatin 40 mg tablet 40 mg PO QDAY amlodipine 5 mg tablet 5 mg PO QDAY oxycodone 5 mg tablet 5 mg PO Q6H MDD 40 PRN (Reason: pain) Qty: 28 0RF cyclobenzaprine 5 mg tablet 5 mg PO TID PRN (Reason: muscle spasm) Qty: 45 0RF lisinopril 40 MG tablet 40 ml PO BID Qty: 0 omeprazole 20 mg Capsule,Delayed Release(Dr/Ec) 20 mg PO QDAY aspirin 81 mg tablet,delayed release (DR/EC) 81 mg PO BID Qty: 60 0RF sennosides-docusate sodium [Senna-S] 8.6-50 mg tablet 1 tab-cap PO QDAY Qty: 30 0RF gabapentin 300 mg capsule 300 mg PO .qhs Qty: 30 0RF doxycycline hyclate 100 mg tablet 100 mg PO BID Qty: 14 0RF Referrals: Yolis Minor PA-C [Primary Care Provider] - In 1 week Problem List Clinical Impression: DVT, lower extremity Patient/Caregiver Discharge Instructions Discharge Activity: activity as tolerated Education Materials: DVT Dc Additional Instructions: Thank you for the opportunity for serving you today. You are stable for discharged . You are advised to: Follow-up with your PCP in 1 to 2 days Return to ED for worsening of symptoms Increase oral fluids Take medication as prescribed Do not massage your lower extremity Elevate your legs as needed Print Language: Azeri Stand Alone Forms: Vero Award Info., Patient Portal Info Letter SHOSHANA/BRITTANY Supervising Physician HAYDE Supervising Physician: MD Matt
== END 2025-02-16 15:00 | disposition home or self-care (01) ==
PROVIDERS: Nurse Practitioner Family; Emergency Provider Emergency Medicine; PCP Physician Assistant
DX: I82.411 Acute embolism and thrombosis of right femoral vein (principal)
CPT/HCPCS: 36415; 80053; 85025; 85610; 85730; 99283

== ENCOUNTER → 2025-02-16 | Outpatient (CLI) | payer MEDICARE, MEDICAID, SELFPAY ==
--- NOTE | 2025-02-16 12:07 | XR_ITS ---
Examination: Duplex scan of the lower extremity, unilateral right complete Date and time of exam: February 16, 2025 1216 hours INDICATIONS: Right leg and calf pain 3 months Technique: Duplex scan of the extremity veins using B-mode/grayscale imaging and Doppler spectral analysis and color flow Attention is directed to internal echogenicity, compression and augmentation involving these veins, color flow assessment, spectral analysis Findings: Positive for occlusive acute deep vein thrombus involving mid and distal right superficial femoral vein IMPRESSION: Positive for occlusive acute deep vein thrombus involving mid and distal right superficial femoral vein
== END | disposition home or self-care (01) ==
PROVIDERS: PCP Physician Assistant; Referring Provider Physician Assistant; Visit Provider Physician Assistant
DX: I82.411 Acute embolism and thrombosis of right femoral vein (principal)
CPT/HCPCS: 93971

== ENCOUNTER → 2025-02-17 | Outpatient (CLI) | payer MEDICARE, MEDICAID, SELFPAY ==
--- NOTE | 2025-02-17 13:35 | XR_ITS ---
Examination:Right hip AP, lateral, AP pelvis 3 views Technique: Hip AP lateral, AP pelvis, 3 views Exam date and time:February 17, 2025 1406 hours INDICATIONS: Right hip pain beginning one month ago. FINDINGS: Significant osteopenia Moderate bilateral hip osteoarthritis Gallbladder left hip fracture or dislocation No avascular necrosis Bones of the pelvis intact IMPRESSION: Moderate bilateral hip osteoarthritis.
== END | disposition home or self-care (01) ==
LOC: CDIM 13:19
PROVIDERS: PCP Physician Assistant; Referring Provider Physician Assistant; Visit Provider Physician Assistant
DX: M16.0 Bilateral primary osteoarthritis of hip (principal)
CPT/HCPCS: 73502

== ENCOUNTER → 2025-03-14 | Outpatient (CLI) | payer MEDICARE, MEDICAID, SELFPAY ==
[2025-03-14 11:53] LABS: Basophils % (Auto) 0 % (0-2.5); Eosinophils # (Auto) 0.1 Thou/mm3 (0.0-0.5); Eosinophils % (Auto) 1 % (0-10); Hematocrit 36.2 % (36.0-46.0); Hemoglobin 12.1 g/dL (12.0-16.0); Immature Granulocytes % (Auto) 0 % (0-0); Immature Granulocytes Auto 0.01 Thou/mm3 (0.00-0.00); Lymphocytes % (Auto) 17 % (10-50); Mean Corpuscular HGB Conc 33.4 g/dl (31.0-37.0); Mean Corpuscular Hemoglobin 28.1 pg (25.0-35.0); Mean Corpuscular Volume 84 fL (80-100); Monocytes # (Auto) 0.5 Thou/mm3 (0.0-0.8); Monocytes % (Auto) 8 % (0-12); Neutrophils # (Auto) 4.2 Thou/mm3 (1.8-7.7); Neutrophils % (Auto) 73 % (37-80); Nucleated Red Blood Cell % 0 /100 WBC (0); Platelet Count 254 Thou/mm3 (140-440); RDW Standard Deviation 45.9 fL (36.4-46.3); White Blood Count 5.8 Thou/mm3 (3.6-11.0)
[2025-03-14 12:02] LABS: Alanine Aminotransferase 11 U/L (10-49); Albumin, Serum 4.3 gm/dL (3.4-4.8); Alkaline Phosphatase 115 U/L (46-116); Anion Gap 11 (7-16); Aspartate Amino Transferase 16 U/L (0-34); BUN/Creatinine Ratio 24 Ratio (12-20); Bilirubin,Direct 0.2 mg/dL (0.0-0.3); Bilirubin,Total 0.5 mg/dL (0.3-1.2); Blood Urea Nitrogen 19 mg/dL (9-23); Calcium 8.4 mg/dL (8.3-10.6); Carbon Dioxide 26.1 mMol/L (20.0-31.0); Cardiac Risk Estimate 2.5 RATIO (3.7-5.6); Chloride 105 mMol/L (98-107); Cholesterol 155 mg/dL (132-200); Creatinine (Component) 0.8 mg/dL (0.6-1.3); Free T4 (Free Thyroxine) 1.07 ng/dL (0.89-1.76); Glucose 98 mg/dL (74-106); HDL Cholesterol 63 mg/dL (40-60); LDL Cholesterol,Calculated 79 mg/dL (0-130); Osmolality,Calculated 285 (275-295); Potassium 4.2 mMol/L (3.4-5.1); Sodium 142 mMol/L (136-145); Thyroid Stimulating Hormone 5.38 uIU/mL (0.55-4.78); Total Protein 6.8 gm/dL (5.7-8.2); Triglycerides 64 mg/dL (30-150); eGFR > 60 See Note
== END | disposition home or self-care (01) ==
LOC: COPL 10:21
PROVIDERS: PCP Physician Assistant; Referring Provider Internal Medicine Cardiovascular Disease; Visit Provider Internal Medicine Cardiovascular Disease
DX: I10 Essential (primary) hypertension (principal); E78.5 Hyperlipidemia, unspecified; I44.7 Left bundle-branch block, unspecified
CPT/HCPCS: 36415; 80048; 80061; 80076; 84439; 84443; 85025

== ENCOUNTER → 2025-04-18 | Outpatient (CLI) | payer MEDICARE, MEDICAID, SELFPAY ==
--- NOTE | 2025-04-18 13:20 | XR_ITS ---
Examination: Bone densitometry Date and time of exam:April 18, 2025 1347 hours INDICATIONS: Menopause age 55 calcium one month Technique: Lumbar spine and hip total bone mineralization values of an calculated. Peak reference and age match control results have been displayed. Findings: Lumbar spine total bone mineralization is1.114 gm/cm2. This is 0.6 standard deviations above peak reference. This is 3.0 standard deviations above age-matched controls. Hip total bone mineralization is 1.049 gm/cm2 This is 0.6 standard deviations above peak reference. This is 2.5 standard deviations above age-matched controls Impression: There is normal mineralization based on lumbar spine measurements. There is normal mineralization based on hip measurements Lumbar mineralization is decreased 1.9% compared with June 18, 2018 Hip mineralization is decreased 0.5% compared with June 18, 2018
== END | disposition home or self-care (01) ==
LOC: CDIM 13:19
PROVIDERS: Referring Provider Physician Assistant; Visit Provider Physician Assistant
DX: M81.0 Age-related osteoporosis without current pathological fracture (principal)
CPT/HCPCS: 77080

== ENCOUNTER 2025-06-20 10:00 | Outpatient (RCR) | payer MEDICARE, MEDICAID, SELFPAY | END 2025-07-18 23:59 | disposition home or self-care (01) | LOC: SCTC 10:00 | PROVIDERS: PCP Student in an Organized Health Care Education/Training Program; Referring Provider Student in an Organized Health Care Education/Training Program; Visit Provider Internal Medicine Hematology & Oncology | DX: I82.401 Acute embolism and thrombosis of unspecified deep veins of right lower extremity (principal); Z96.651 Presence of right artificial knee joint; Z79.01 Long term (current) use of anticoagulants; I87.2 Venous insufficiency (chronic) (peripheral); E78.5 Hyperlipidemia, unspecified; I10 Essential (primary) hypertension; E11.9 Type 2 diabetes mellitus without complications; E66.9 Obesity, unspecified; Z68.41 Body mass index [BMI] 40.0-44.9, adult | CPT/HCPCS: 99213; G0463 ==

== ENCOUNTER → 2025-06-20 | Outpatient (CLI) | payer MEDICARE, MEDICAID, SELFPAY | END | disposition home or self-care (01) | PROVIDERS: PCP Physician Assistant; Referring Provider Internal Medicine Hematology & Oncology; Visit Provider Internal Medicine Hematology & Oncology | DX: I82.401 Acute embolism and thrombosis of unspecified deep veins of right lower extremity (principal); Z96.651 Presence of right artificial knee joint; Z79.01 Long term (current) use of anticoagulants; I87.2 Venous insufficiency (chronic) (peripheral); E78.5 Hyperlipidemia, unspecified; I10 Essential (primary) hypertension; E11.9 Type 2 diabetes mellitus without complications; E66.9 Obesity, unspecified; Z68.41 Body mass index [BMI] 40.0-44.9, adult | CPT/HCPCS: 99213; G0463 ==

== ENCOUNTER → 2025-06-23 | Outpatient (CLI) | payer MEDICARE, MEDICAID, SELFPAY ==
[2025-06-23 15:27] LABS: Basophils # (Auto) 0.0 Thou/mm3 (0.0-0.2); Basophils % (Auto) 1 % (0-2.5); Eosinophils # (Auto) 0.1 Thou/mm3 (0.0-0.5); Eosinophils % (Auto) 1 % (0-10); Hematocrit 38.1 % (36.0-46.0); Hemoglobin 12.2 g/dL (12.0-16.0); Immature Granulocytes Auto 0.02 Thou/mm3 (0.00-0.00); Lymphocytes # (Auto) 1.1 Thou/mm3 (1.0-4.8); Lymphocytes % (Auto) 20 % (10-50); Mean Corpuscular HGB Conc 32.0 g/dl (31.0-37.0); Mean Corpuscular Hemoglobin 28.6 pg (25.0-35.0); Mean Corpuscular Volume 89 fL (80-100); Monocytes # (Auto) 0.5 Thou/mm3 (0.0-0.8); Monocytes % (Auto) 8 % (0-12); Neutrophils # (Auto) 4.0 Thou/mm3 (1.8-7.7); Neutrophils % (Auto) 70 % (37-80); Nucleated Red Blood Cell # 0.00 Thou/mm3 (0.00-0.00); Nucleated Red Blood Cell % 0 /100 WBC (0); Platelet Count 217 Thou/mm3 (140-440); RDW Standard Deviation 49.3 fL (36.4-46.3); Red Blood Count 4.27 Miln/mm3 (4.00-5.20); White Blood Count 5.7 Thou/mm3 (3.6-11.0)
[2025-06-23 15:47] LABS: Alanine Aminotransferase 12 U/L (10-49); Albumin, Serum 4.0 gm/dL (3.4-4.8); Albumin/Globulin Ratio 1.7 (1.2-2.2); Alkaline Phosphatase 124 U/L (46-116); Anion Gap 10 (7-16); Aspartate Amino Transferase 18 U/L (0-34); BUN/Creatinine Ratio 18 Ratio (12-20); Bilirubin,Total 0.6 mg/dL (0.3-1.2); Blood Urea Nitrogen 18 mg/dL (9-23); Calcium 9.1 mg/dL (8.3-10.6); Calcium (Corrected) 9.1 mg/dL (8.5-10.1); Carbon Dioxide 28.4 mMol/L (20.0-31.0); Chloride 105 mMol/L (98-107); Creatinine (Component) 1.0 mg/dL (0.6-1.3); Globulin 2.3 gm/dL (2.3-3.5); Glucose 117 mg/dL (74-106); Osmolality,Calculated 287 (275-295); Potassium 4.7 mMol/L (3.4-5.1); Sodium 143 mMol/L (136-145); Total Protein 6.3 gm/dL (5.7-8.2); eGFR 59 See Note
[2025-06-23 16:19] LABS: D-Dimer 1500 ng/mL (<600)
[2025-06-29 15:34] LABS: Cardiolipin Ab IgA <2.0 APL-U/mL; Cardiolipin Ab IgG <2.0 GPL-U/mL
[2025-06-30 07:15] LABS: B2-Glycoprotein I Ab IgA <2.0 U/mL; B2-Glycoprotein I Ab IgG <2.0 U/mL; B2-Glycoprotein I Ab IgM <2.0 U/mL; Cardiolipin Ab IgM <2.0 MPL-U/mL; Factor V Leiden Mutation NEGATIVE; Phos.Serine Ab IgG <9 U (< OR = 30); Phos.Serine Ab IgM 10 U (< OR = 30)
== END | disposition home or self-care (01) ==
LOC: SCTO 14:13
PROVIDERS: PCP Physician Assistant; Referring Provider Nurse Practitioner Family; Visit Provider Nurse Practitioner Family
DX: I82.409 Acute embolism and thrombosis of unspecified deep veins of unspecified lower extremity (principal)
CPT/HCPCS: 36415; 80053; 81241; 85025; 85379; 86146; 86147; 86148

== ENCOUNTER 2025-09-19 10:07 | Outpatient (RCR) | payer MEDICARE, MEDICAID, SELFPAY ==
--- NOTE | 2025-09-19 11:00 | CTCFLWUP_ITS ---
Patient: NAYA ROLLINS : 1950 Page 2 of 5 FOLLOW UP NOTE DATE OF SERVICE: 09/19/2025 NAME: NAYA ROLLINS ACCOUNT: [id number] : 1950 AGE: 74 INTERVAL HISTORY: ONCOLOGY HISTORY: DIAGNOSIS: Provoked DVT February 2025 HISTORY OF PRESENT ILLNESS: Naya Rollins is a 74-year-old female with a history of hyperlipidemia, hypertension presenting with history of right deep vein thrombosis (DVT). The patient reports experiencing pain in her right lower extremity after knee surgery 03/2024. Initially, an ultrasound in August 2024 was negative for DVT, but the pain persisted. On February 16, 2025, she went to the ER due to the ongoing pain of right leg, where an ultrasound confirmed a positive DVT in her right lower extremity. Since the ER visit, the patient has been prescribed Eliquis (apixaban) 5 mg twice daily for DVT management. The patient reports adherence to her medication regimen. The patient's medical history is significant for history of varicose veins and venous insufficency, for which she underwent bilateral sclerotherapy and saphenous vein ablation in 2022. She had been following up with headlight assembler. Recent healthcare interactions include a visit with her valve maker for hypertension, Dr. Chicas. Her vascular surgeon did ultrasound and as per patient shows no clot OTHER MEDICAL HISTORY/CONDITIONS: DVT 02/16/2025 HTN f/u with cardiology Hyperlipidemia Arthritis on pain medication Right TKA - 05/2024 Cholecystectomy FINESSE; BSO Bladder surgery Delbert cataract surgery thyroid surgery Delbert blepharoplasty FAMILY HISTORY: Sibling:?Sister?-?Leukemia?-?dx?[id number] SOCIAL HISTORY: Occupational?History:?Retired Education?Level:?Completed something less than 8th grade Marital?Status:? Tobacco?Use:?Denies ETOH?Use:?Denies Drug?Note:?Denies Social?History?Note:?Lives?alone [employer] WORK[employer] HISTORY: Menarche?-?Age:?9 Menopause:?55 :?6 Live?Births:?4 Age?1st?:?16 Gynecological?Note:?1? MEDICATIONS: 1. amlodipine - 5 mg 1 tab Daily 2. atorvastatin - 40 mg 1 tab Daily 3. Eliquis - 5 mg 1 tab Twice a Day 4. lisinopril - 40 mg 1 tab Daily 5. metoprolol succinate - 25 mg 1 tab Daily 6. traMADol - 50 mg 1 tab Every 4 Hours Medications Last Reconciled by Magui Urias RN on 06/20/2025 ALLERGIES: No Known Drug Allergies REVIEW OF SYSTEMS: A complete 14-point review of systems was performed and is negative except as noted in interval history. PHYSICAL EXAMINATION: VITAL SIGNS: PAIN: 1 - Between no and mild pain ECOG Performance Status: 2 - Symptomatic; ambulatory; capable of self-care; >50% of waking hrs. not in bed GENERAL APPEARANCE: Appears well, in no apparent distress, appropriately interactive. HEENT: Normocephalic, no temporal wasting, normal conjunctiva, no scleral icterus, normal hearing, lips without lesions, neck normal range of motion. CARDIOVASCULAR: Not assessed. PULMONARY: Normal respiratory effort, no respiratory distress or use of accessory muscles, speaking in full sentences, no tachypnea. EXTREMITIES: No pedal edema or cyanosis. Palpable bilateral dorsalis pedis pulses. SKIN: Normal skin appearance. NEUROLOGIC: Alert and oriented x4. PSHYCHIATRIC: Appropriate affect, mood normal, behavior normal, intact thought and speech. LABORATORY DATA: I have personally reviewed and interpreted each of the patient?s relevant lab tests, abnormal findings are below: Date 03/14/25 ??WHITE?BLOOD?COUNT?(Thou/mm3) 5.8 ??RED?BLOOD?COUNT?(Miln/mm3) 4.30 ??HEMOGLOBIN?(gm/dl) 12.1 ??HEMATOCRIT?(%) 36.2 ??PLATELET?COUNT?(Thou/mm3) 254 ??NEUTROPHILS?%,?AUTO?(%) 73 ??LYMPH?%,?AUTO?(%) 17 ??NEUTROPHILS,?AUTO?(Thou/mm3) 4.2 ??GLUCOSE,RANDOM?(mg/dL) 98 ??BLOOD?UREA?NITROGEN?(mg/dL) 19 ??CREATININE?(mg/dL) 0.80 ??SODIUM?(mmol/L) 142 ??POTASSIUM?(mmol/L) 4.2 ??CHLORIDE?(mmol/L) 105 ??AST/SGOT?(Unit/L) 16 ??ALT/SGPT?(Unit/L) 11 ??ALKALINE?PHOSPHATASE?(Unit/L) 115 ??BILIRUBIN,?TOTAL?(mg/dL) 0.5 ??PROTEIN?TOTAL?(gm/dl) 6.8 ??ALBUMIN,?SERUM?(gm/dl) 4.3 ??CALCIUM,?SERUM?(mg/dL) 8.4 ASSESSMENT/PLAN: Naya Rollins is a 74-year-old female with a history of hyperlipidemia, hypertension, and diabetes, presenting with right lower extremity pain and a recent diagnosis of deep vein thrombosis (DVT). Deep Vein Thrombosis (DVT) Patient had diagnosis of DVT in the right lower extremity after patient has restricted motion in her legs since the replacement of knee surgery in March 2024 Patient have pain in the back of her knee and have difficulty in moving She says that it hurts to walk and now she uses cane Patient has arthritis in her knee as well as ankle DVT was likely provoked secondary to decreased mobility after surgery and arthritis Patient's risk factor is persistent Aventyl advised to continue Eliquis for now Patient's Eliquis can be decreased to 2.5 mg twice daily if ultrasound come back as negative as she has already been on Eliquis for 6 months \Patient need anticoagulation prophylaxis for DVT as she is limited mobility Chronic Venous Insufficiency Assessment: Patient has a history of varicose veins and underwent bilateral saphenous vein ablation and sclerotherapy, last procedure was in 2022. Patient is currently under the care of vascular. The chronic venous insufficiency may have been a risk factor for the recent DVT. Plan: - Continue follow-up with vascular specialist Hyperlipidemia Assessment: Patient has a history of high cholesterol and is being followed by her primary care provider for management. Plan: - Continue f/u with PCP Hypertension Assessment: Patient has a history of high blood pressure. Recent check-ups with her valve maker, Dr. Chicas Plan: - Follow up with valve maker as scheduled Diabetes Mellitus Assessment: Patient has a history of diabetes. Obesity Assessment: Patient has a BMI of 42.6, indicating obesity. This is a significant risk factor for DVT. Plan: Continue following up with PCP for management, lifestyle modifications. ORDERS: Order # Description [id number] Comprehensive Metabolic Panel - 12 + MD Follow Up 6 Month [id number] Follow Up 3 Months RETURN TO CLINIC: I reviewed the diagnosis, prognosis, and recommended treatment/procedure options with the patient (and/or their legal construction sales representative), including the potential benefits, risks, side effects and alternative therapies. We also discussed the option of no treatment and the possibility of clinical trial participation, if applicable. All questions were addressed, and they demonstrated understanding. They provided informed consent to proceed with the proposed plan of care. BILLING AND COMPLIANCE: I reviewed external records from providers outside my specialty as summarized above. I spent a total of 50 minutes on this patient?s care on the day of their visit excluding time spent related to any billed procedures. This time includes time spent with the patient as well as time spent documenting in the medical record, reviewing patients records and tests, obtaining history, placing orders, communicating with other healthcare professionals, counseling the patient, family or caregiver, and/or care coordination for the diagnoses above. Electronically Signed by: Jose Antonio Ellis MD T: 10:58 AM CC: PCP: Yolis Minor Referring: Yolis Minor This document was completed utilizing speech recognition software. Grammatical errors, random word insertions, pronoun errors, and incomplete sentences are an occasional consequence of this system due to software limitations, ambient noise, and hardware issues. Any formal questions or concerns about the content, text or information contained within the body of this dictation should be directly addressed to the provider for clarification.
== END 2025-10-18 23:59 | disposition home or self-care (01) ==
LOC: SCTC 10:07
PROVIDERS: PCP Physician Assistant; Referring Provider Physician Assistant; Visit Provider Internal Medicine Hematology & Oncology
DX: I82.401 Acute embolism and thrombosis of unspecified deep veins of right lower extremity (principal); M79.604 Pain in right leg; M15.9 Polyosteoarthritis, unspecified; E78.5 Hyperlipidemia, unspecified; I10 Essential (primary) hypertension; E11.9 Type 2 diabetes mellitus without complications; E66.9 Obesity, unspecified; Z68.41 Body mass index [BMI] 40.0-44.9, adult; I87.2 Venous insufficiency (chronic) (peripheral); Z79.01 Long term (current) use of anticoagulants
CPT/HCPCS: 99212; G0463